=== PATIENT | male | born 1970 | race African-American/Black ===

== ENCOUNTER 2017-08-23 02:14 | Emergency (ER) | payer SELFPAY ==
[~2017-08-23] VITALS: Ht 182.9 cm; Wt 104.3 kg
--- NOTE | 2017-08-23 02:39 | NUR ---
Dr. Cruz at bedside for MSE.
[2017-08-23] MEDS ORDERED: ONDANSETRON 4 MG/2 ML VIAL IV ONE ×2 (02:45→04:45)
[2017-08-23] MEDS ORDERED: PANTOPRAZOLE SODIUM 40 MG VIAL IV ONE (02:45)
[2017-08-23] MEDS ORDERED: MORPHINE SULFATE 2 MG/1 ML DISP.SYRIN IV ONE (02:45)
[2017-08-23] MEDS ORDERED: IV NORMAL SALINE 1000 ML BAG IV ONE (02:45)
--- NOTE | 2017-08-23 02:55 | NUR ---
Patient out of ER for Xray.
[2017-08-23] MEDS ORDERED: MORPHINE SULFATE 4 MG/1 ML DISP.SYRIN ONE (03:00)
[2017-08-23] MEDS ORDERED: ONDANSETRON 4 MG/2 ML VIAL ONE ×2 (03:00→04:26)
[2017-08-23] MEDS ORDERED: PANTOPRAZOLE SODIUM 40 MG VIAL ONE (03:01)
[2017-08-23 03:03] LABS: BASOPHILS # (AUTO) 0.1 K/uL (0.0-8.0); BASOPHILS % (AUTO) 0.5 % (0.0-2.0); EOSINOPHILS % (AUTO) 0.1 % (0.0-7.0); HEMATOCRIT 46.2 % (36.7-47.1); HEMOGLOBIN 16.6 g/dL (12.5-16.3); LYMPHOCYTES # (AUTO) 2.2 K/uL (20.0-40.0); LYMPHOCYTES % (AUTO) 20.7 % (20.5-51.5); MEAN CORPUSCULAR HEMOGLOBIN 32.8 uug (23.8-33.4); MEAN CORPUSCULAR HGB CONC 36 g/dL (32.5-36.3); MEAN CORPUSCULAR VOLUME 91.4 fL (73.0-96.2); MONOCYTES # (AUTO) 0.8 K/uL (2.0-10.0); MONOCYTES % (AUTO) 7.1 % (0.0-11.0); NEUTROPHILS # (AUTO) 7.7 K/uL (1.8-8.9); NEUTROPHILS % (AUTO) 71.6 % (38.5-71.5); PLATELET COUNT (AUTO) 245 K/uL (152-348); RED BLOOD CELL COUNT(AUTO) 5.06 MIL/uL (4.06-5.63); WHITE BLOOD COUNT (AUTO) 10.7 K/uL (3.6-10.2)
[2017-08-23 03:09] LABS: BILIRUBIN,DIRECT 0.1 mg/dL (0.0-0.2); CREATININE 1.1 mg/dL (0.6-1.3); POTASSIUM 3.4 mmol/L (3.5-5.1)
--- NOTE | 2017-08-23 03:12 | NUR ---
Patient back to ER from Xray.
[2017-08-23 03:24] LABS: BILIRUBIN,TOTAL 0.6 mg/dL (0.2-1.0); TOTAL PROTEIN, SERUM 6.9 g/dL (6.4-8.2)
[2017-08-23 03:49] LABS: *BILIRUBIN,URIN NEGATIVE (NEGATIVE); *BLOOD, URINE 2+ (NEGATIVE); *CLARITY,URINE CLEAR (CLEAR); *COLOR,URINE YELLOW (YELLOW); *KETONES,URINE 1+ (NEGATIVE); *PROTEIN,URINE 2+ (NEGATIVE); *UROBILINOGEN,URINE 0.2 E.U./dl (NORMAL); LEUKOCYTE ESTERASE ,URINE NEGATIVE (NEGATIVE); NITRITE, URINE NEGATIVE (NEGATIVE); PH,URINE 7.5 (5.0-8.0); UGLUCOSE NEGATIVE (NEGATIVE)
[2017-08-23 03:57] LABS: BACTERIA,URINE NONE SEEN /HPF (NONE SEEN); SQUAMOUS EPITHELIAL CELL,UR FEW /HPF (NONE SEEN)
--- NOTE | 2017-08-23 04:20 | NUR ---
Pt states he is nauseous again, but no pain.
--- NOTE | 2017-08-23 05:30 | NUR ---
Pt states feeling much better, but worried his symptoms might come back.
--- NOTE | 2017-08-23 05:45 | NUR ---
Patient discharged to home in stable conditon. Written and verbal after care instructions given. Patient verbalizes understanding of instructions. Patient ambulated out of ER with steady gait, no acute signs of distress, VSS, all belongings taken, IV site discontinued.
[2017-08-23 05:50] VITALS: BP 144/87
== END 2017-08-23 05:50 | disposition home or self-care (01) ==
LOC: ER 02:19
DX: K29.70 Gastritis, unspecified, without bleeding (principal); F17.200 Nicotine dependence, unspecified, uncomplicated
CPT/HCPCS: 36415; 74021; 83690; 85025; 93005; A4663; C9113; J2270; J2405; J7030

== ENCOUNTER 2017-12-03 15:30 | Emergency (ER) | payer MEDICAID ==
[~2017-12-03] VITALS: Ht 180.3 cm; Wt 105.7 kg
== END 2017-12-03 15:52 | disposition home or self-care (01) ==
LOC: ER 15:33
DX: K29.70 Gastritis, unspecified, without bleeding (principal); Z76.0 Encounter for issue of repeat prescription; F17.200 Nicotine dependence, unspecified, uncomplicated
CPT/HCPCS: 99283; A4663

== ENCOUNTER 2021-11-07 01:22 | Emergency (ER) | payer SELFPAY ==
--- NOTE | 2021-11-07 04:35 | NUR ---
Patient was called to be triaged but was not present in the waiting room or outside of ER.
--- NOTE | 2021-11-07 05:31 | NUR ---
Patient was called to be triaged but was not present in the waiting room or outside of ER.
--- NOTE | 2021-11-07 05:34 | NUR ---
Patient was called to be triaged but was not present in the waiting room or outside of ER. Patient was not triaged or seen by ERMD.
== END 2021-11-07 05:35 | disposition left against medical advice (07) ==
LOC: ER 01:25
DX: Z53.21 Procedure and treatment not carried out due to patient leaving prior to being seen by health care provider (principal)